=== PATIENT | male | born 1965 | race Caucasian/White ===

== ENCOUNTER 2024-01-26 07:41 | Day surgery (SDC) | payer OTHER ==
[~2024-01-26] VITALS: Ht 177.8 cm; Wt 101.4 kg
[~2024-01-26 07:41] MED LIST: LISI10TA24 PO
[2024-01-26] MEDS: NS 1,000 ML IV ONE (08:32)
[2024-01-26 09:12] VITALS: TEMP 97.5
[2024-01-26 09:30] VITALS: BP 147/93; O2SAT 94
== END 2024-01-26 09:40 | disposition home or self-care (01) ==
LOC: M OPP 07:41
PROVIDERS: ATTEND Internal Medicine Gastroenterology
DX: R19.5 Other fecal abnormalities (principal); K63.5 Polyp of colon; K64.8 Other hemorrhoids; K57.30 Diverticulosis of large intestine without perforation or abscess without bleeding; I10 Essential (primary) hypertension; Z79.899 Other long term (current) drug therapy